=== PATIENT | female | born 1985 | race Caucasian/White ===

== ENCOUNTER 2016-06-29 07:18 | Emergency (ER) | payer SELFPAY ==
[2016-06-29 08:18] LABS: HEMOGLOBIN 13.2 gm/dl (12.3-15.3); RED BLOOD COUNT 4.43 M/UL (4.00-5.10); WHITE BLOOD COUNT 9.2 K/UL (4.5-11.0)
[2016-06-29 08:32] LABS: BUN/CREATININE RATIO 12 (0-10)
== END 2016-06-29 11:05 | disposition home or self-care (01) ==
LOC: ER1 07:18
PROVIDERS: Physician Assistant
DX: R30.0 Dysuria (principal); I10 Essential (primary) hypertension; Z90.89 Acquired absence of other organs; Z88.8 Allergy status to other drugs, medicaments and biological substances
CPT/HCPCS: 36415; 80053; 81001; 83690; 84703; 85025; 87077; 87086; 87186; 96374; 96375; 99284; J1885; J2405